=== PATIENT | male | born 1960 | race Caucasian/White ===

== ENCOUNTER 2018-05-13 09:28 | Emergency (ER) | payer SELFPAY ==
--- NOTE | 2018-05-13 10:10 | RAD ---
LEFT SHOULDER THREE VIEWS: INDICATIONS: Left shoulder pain. COMPARISON: None. FINDINGS: There is a hypertrophic, ununited fracture involving the distal clavicle. There is mild to moderate degenerative change of the left AC joint. There is apex angular deformity at the distal clavicle fra cture site. No acute fracture is evident. The visualized left lung is clear. 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 POS: [facility]
[2018-05-13] MEDS ORDERED: Naproxen 500 MG TAB ONE (10:26)
== END 2018-05-13 11:23 | disposition home or self-care (01) ==
LOC: ERS 09:28
DX: M25.512 Pain in left shoulder (principal); F17.210 Nicotine dependence, cigarettes, uncomplicated; Z79.899 Other long term (current) drug therapy; Z87.442 Personal history of urinary calculi; W01.0XXA Fall on same level from slipping, tripping and stumbling without subsequent striking against object, initial encounter; Y92.091 Bathroom in other non-institutional residence as the place of occurrence of the external cause

== ENCOUNTER 2018-06-02 11:28 | Emergency (ER) | payer SELFPAY | END 2018-06-02 12:34 | disposition home or self-care (01) | LOC: ERS 11:28 | DX: M54.2 Cervicalgia (principal); F17.210 Nicotine dependence, cigarettes, uncomplicated; Z87.442 Personal history of urinary calculi | CPT/HCPCS: 99283 ==

== ENCOUNTER 2018-06-17 07:25 | Emergency (ER) | payer SELFPAY ==
[2018-06-17 08:09] LABS: #Basophils 0.1 thou/uL (0.0-0.2); #Eosinphils 0.2 thou/uL (0.0-0.7); #Lymphocytes 1.9 thou/uL (1.20-3.40); #Monocytes 0.5 thou/uL (0.11-0.59); #Neutrophils 4.6 thou/uL (1.40-6.50); %Basophils 0.8 % (0.0-1.0); %Lymphocytes 25.9 % (21.0-51.0); %Neutrophils 63.3 % (42.0-75.0); Hemoglobin 15.5 g/dL (14.0-18.0); Mean Corpuscular HGB CONC 35.3 g/dL (32.0-36.0); Mean Corpuscular Hemoglobin 35.5 pg (27.0-31.0); Mean Platelet Volume 6.9 fL (7.4-10.4); Platelet Count 230 thou/uL (130-400); RBC Distribution Width 12.8 % (11.5-14.5); Red Blood Cell (RBC) Count 4.37 mill/uL (4.70-6.10); White Blood Cell (WBC) Count 7.3 thou/uL (4.8-10.8)
[2018-06-17] MEDS ORDERED: Ondansetron HCl/PF 4 MG/2 ML Vial ONE (08:21)
[2018-06-17] MEDS ORDERED: Ketorolac Tromethamine 30 MG/ML VIAL ONE (08:21)
[2018-06-17] MEDS ORDERED: Morphine 4 MG/ML VIAL ONE (08:21)
[2018-06-17 08:34] LABS: ALT (SGPT) 13 U/L (8-55); AST (SGOT) 17 U/L (5-34); Albumin 4.1 g/dL (3.5-5.0); Alkaline Phosphatase 48 U/L (40-150); Anion Gap 9 mmol/L (10-20); BUN (Urea Nitrogen) 16 mg/dL (8.4-25.7); Calc. Creatinine Clearance 0 mL/min (70-130); Calcium 9.1 mg/dL (7.8-10.44); Carbon Dioxide 26 mmol/L (22-29); Chloride 106 mmol/L (98-107); Estimated GFR-MDRD Greater than 90; Globulin 2.2 g/dL (2.4-3.5); Glucose 93 mg/dL (70-105); Potassium 4.3 mmol/L (3.5-5.1); Protein, Total 6.3 g/dL (6.0-8.3); Sodium 137 mmol/L (136-145)
--- NOTE | 2018-06-17 08:39 | CT ---
CT ABDOMEN AND PELVIS NONCONTRAST: HISTORY: Right flank pain. FINDINGS: Left renal collecting system and ureter are moderately distended to the level of the 0.5 cm calculus at the mid left ureter, L3-4 level. Left ureter beyond this point is decompressed. Right renal inna ecting system, ureter, and bladder are decompressed. Multiple calcifications are present within calyces of each kidney, measuring up to 0.4 cm. Lack of contrast limits evaluation for other abnormalities. Prominent calcification throughout the a rterial structures, accounting for additional calcifications at each renal hilum. Diverticula arise from the colon without adjacent inflammation. Degenerative changes lumbar spine. IMPRESSION: 1. Partial obstruction at a 5 mm mid left ureteral calculus. Additional nonobstructing bilateral re nal calculi. 2. Atherosclerosis. POS: [facility]
[2018-06-17 08:53] LABS: Bilirubin Negative (Negative); Blood, Urine Negative (Negative); Clarity CLEAR (Clear); Glucose, Urine (Dipstick) Negative (Negative); Leukocyte Negative (Negative); Nitrite Negative (Negative); Protein, Urine (Dipstick) Negative (Neg-Trace); Specific Gravity, Urine 1.019 (1.002-1.036)
== END 2018-06-17 10:30 | disposition home or self-care (01) ==
LOC: ERS 07:25
DX: N20.2 Calculus of kidney with calculus of ureter (principal); F17.210 Nicotine dependence, cigarettes, uncomplicated
CPT/HCPCS: 74176; 80053; 81003; 85025; 87086; 96374; 96375; J1885; J2270; J2405

== ENCOUNTER 2018-07-07 12:38 | Emergency (ER) | payer SELFPAY ==
[2018-07-07 13:04] LABS: #Basophils 0.1 thou/uL (0.0-0.2); #Eosinphils 0.1 thou/uL (0.0-0.7); #Lymphocytes 2.2 thou/uL (1.20-3.40); #Monocytes 0.7 thou/uL (0.11-0.59); #Neutrophils 5.4 thou/uL (1.40-6.50); %Basophils 0.9 % (0.0-1.0); %Eosinophils 1.5 % (0.0-10.0); %Monocytes 8.4 % (0.0-10.0); %Neutrophils 63.2 % (42.0-75.0); Hemoglobin 16.5 g/dL (14.0-18.0); Mean Corpuscular HGB CONC 36.1 g/dL (32.0-36.0); Mean Corpuscular Hemoglobin 36.1 pg (27.0-31.0); Mean Corpuscular Volume 99.8 fL (78.0-98.0); Mean Platelet Volume 6.5 fL (7.4-10.4); Platelet Count 234 thou/uL (130-400); RBC Distribution Width 12.8 % (11.5-14.5); Red Blood Cell (RBC) Count 4.57 mill/uL (4.70-6.10); White Blood Cell (WBC) Count 8.5 thou/uL (4.8-10.8)
[2018-07-07 13:18] LABS: ALT (SGPT) 14 U/L (8-55); AST (SGOT) 21 U/L (5-34); Albumin 4.2 g/dL (3.5-5.0); Alkaline Phosphatase 57 U/L (40-150); Anion Gap 13 mmol/L (10-20); BUN (Urea Nitrogen) 14 mg/dL (8.4-25.7); Bilirubin, Total 1.9 mg/dL (0.2-1.2); Calc. Creatinine Clearance 0 mL/min (70-130); Calcium 9.2 mg/dL (7.8-10.44); Carbon Dioxide 19 mmol/L (22-29); Chloride 105 mmol/L (98-107); Estimated GFR-MDRD 90; Glucose 107 mg/dL (70-105); Potassium 3.9 mmol/L (3.5-5.1); Protein, Total 7.2 g/dL (6.0-8.3); Sodium 133 mmol/L (136-145)
[2018-07-07] MEDS ORDERED: Ketorolac Tromethamine 30 MG/ML VIAL ONE (13:54)
[2018-07-07] MEDS ORDERED: Ondansetron HCl/PF 4 MG/2 ML Vial ONE (13:54)
[2018-07-07 14:10] LABS: Bilirubin Negative (Negative); Blood, Urine Moderate (Negative); Clarity CLEAR (Clear); Glucose, Urine (Dipstick) Negative (Negative); Leukocyte Negative (Negative); Nitrite Negative (Negative); Protein, Urine (Dipstick) Trace mg/dL (Neg-Trace); Urobilinogen 0.2 mg/dL (0.2-1.0)
[2018-07-07 14:12] LABS: Bacteria/HPF None Seen HPF (None Seen); Hyaline Casts/LPF 0-3 HYALINE CAST LPF (0-3 Hyaline); Pathc Cast-AUWi Flag 0.29 (0-2.49); RBC/HPF 21-50 HPF (0-3); Squamous Epithelial 0-3 HPF (0-3); WBC/HPF 0-3 HPF (0-3)
--- NOTE | 2018-07-07 14:36 | CT ---
CT OF THE ABDOMEN AND PELVIS WITHOUT IV CONTRAST: INDICATION: A 58-year-old male with flank pain. FINDINGS: The exam is compared to a prior dated 06/17/18. FINDINGS: Lung bases are clear. No focal hepatic lesion is evident. The pancreas, adrenal glands, and spleen appear unremarkable. T here is bilateral nephrolithiasis. The extent of the renal stone burden appears similar. There is a 4.7 mm stone within the proximal left ureter. No hydronephrosis is evident. There are scattered diverticula involving the colon. There is a normal appendix in the right lower q uadrant. The bladder is partially decompressed. The prostate is enlarged. There is diffuse osteopenia. There is scattered degenerative and osteoarthritic change. IMPRESSION: 1. A 4 mm stone within the mid left ureter is not appreciably changed in position from the compariso n examination. There is no hydronephrosis. 2. Bilateral nephrolithiasis. 3. Colonic diverticulosis. POS: [facility]
== END 2018-07-07 14:51 | disposition home or self-care (01) ==
LOC: ERS 12:38
DX: N20.2 Calculus of kidney with calculus of ureter (principal); K57.30 Diverticulosis of large intestine without perforation or abscess without bleeding; N40.0 Benign prostatic hyperplasia without lower urinary tract symptoms; F17.210 Nicotine dependence, cigarettes, uncomplicated; Z79.899 Other long term (current) drug therapy
CPT/HCPCS: 36415; 74176; 80053; 81003; 81015; 83605; 85025; 87040; 87086; 96361; 96374; 96375; J1885; J2405

== ENCOUNTER 2018-08-13 19:58 | Emergency (ER) | payer SELFPAY ==
[2018-08-13 20:28] LABS: #Basophils 0.1 thou/uL (0.0-0.2); #Eosinphils 0.1 thou/uL (0.0-0.7); #Lymphocytes 2.7 thou/uL (1.20-3.40); #Monocytes 0.7 thou/uL (0.11-0.59); #Neutrophils 4.7 thou/uL (1.40-6.50); %Basophils 1.3 % (0.0-1.0); %Eosinophils 1.4 % (0.0-10.0); %Lymphocytes 32.1 % (21.0-51.0); %Monocytes 8.9 % (0.0-10.0); %Neutrophils 56.3 % (42.0-75.0); Hemoglobin 16.6 g/dL (14.0-18.0); Mean Corpuscular HGB CONC 34.2 g/dL (32.0-36.0); Mean Corpuscular Hemoglobin 34.3 pg (27.0-31.0); Mean Platelet Volume 7.3 fL (7.4-10.4); Platelet Count 270 thou/uL (130-400); RBC Distribution Width 12.8 % (11.5-14.5); Red Blood Cell (RBC) Count 4.84 mill/uL (4.70-6.10); White Blood Cell (WBC) Count 8.3 thou/uL (4.8-10.8)
[2018-08-13] MEDS ORDERED: Ketorolac Tromethamine 30 MG/ML VIAL ONE (20:37)
[2018-08-13 20:46] LABS: ALT (SGPT) 13 U/L (8-55); AST (SGOT) 22 U/L (5-34); Albumin 4.4 g/dL (3.5-5.0); Alkaline Phosphatase 61 U/L (40-150); Anion Gap 15 mmol/L (10-20); BUN (Urea Nitrogen) 12 mg/dL (8.4-25.7); Bilirubin, Total 0.3 mg/dL (0.2-1.2); Calc. Creatinine Clearance 0 mL/min (70-130); Calcium 9.7 mg/dL (7.8-10.44); Carbon Dioxide 24 mmol/L (22-29); Chloride 103 mmol/L (98-107); Estimated GFR-MDRD 82; Globulin 2.8 g/dL (2.4-3.5); Glucose 105 mg/dL (70-105); Protein, Total 7.2 g/dL (6.0-8.3); Sodium 138 mmol/L (136-145)
[2018-08-13 20:49] LABS: Bilirubin Negative (Negative); Blood, Urine Large (Negative); Clarity CLEAR (Clear); Glucose, Urine (Dipstick) Negative (Negative); Leukocyte Negative (Negative); Nitrite Negative (Negative); Protein, Urine (Dipstick) Negative (Neg-Trace); Specific Gravity, Urine 1.005 (1.002-1.036); Urobilinogen 0.2 mg/dL (0.2-1.0)
[2018-08-13 20:51] LABS: Bacteria/HPF None Seen HPF (None Seen); Hyaline Casts/LPF 0-3 HYALINE CAST LPF (0-3 Hyaline); RBC/HPF 21-50 HPF (0-3); Squamous Epithelial None Seen HPF (0-3); WBC/HPF 0-3 HPF (0-3)
--- NOTE | 2018-08-13 22:12 | CT ---
CT ABDOMEN AND PELVIS WITHOUT CONTRAST: 08/13/18 Multiple axial tomograms obtained through the abdomen and pelvis without IV enhancement. INDICATIONS: Abdominal pain. Left flank pain. Known kidney stones. Comparison made to recent CT of 07/07/18. That exam revealed a 4 mm calculus in the mid left ureter producing mild obstructing change. FINDINGS: On today's exam, there is moderate to severe left hydronephrosis. The 4 mm calculus in the mid left u reter remains and is unchanged in position. There is now high grade obstructive change present on the left. No evidence of right ureteral calculus or obstruction. There are nonobstructing calculi in the upper collecting structures of both kidneys as previously noted. Liver, spleen, pancreas, adrenal glands and bowel loops are unremarkable and unchanged. IMPRESSION: 4 mm calculus in the mid left ureter is again seen. There is now high grade obstructive change on the left when compared to the exam of 07/07/18. POS: [facility]
[2018-08-13] MEDS ORDERED: Morphine 4 MG/ML VIAL ONE (22:37)
== END 2018-08-13 22:52 | disposition home or self-care (01) ==
LOC: ERS 19:58
DX: N13.2 Hydronephrosis with renal and ureteral calculous obstruction (principal); F41.9 Anxiety disorder, unspecified; F17.210 Nicotine dependence, cigarettes, uncomplicated; Z79.899 Other long term (current) drug therapy
CPT/HCPCS: 74176; 80053; 81003; 81015; 85025; 96361; 96374; 96375; J1885; J2270

== ENCOUNTER 2018-09-14 14:37 | Emergency (ER) | payer SELFPAY ==
[2018-09-14] MEDS ORDERED: Ondansetron PF 4 MG/2 ML Vial ONE (14:52)
[2018-09-14 15:22] LABS: #Basophils 0.1 thou/uL (0.0-0.2); #Lymphocytes 1.8 thou/uL (1.20-3.40); #Monocytes 0.9 thou/uL (0.11-0.59); #Neutrophils 10.1 thou/uL (1.40-6.50); %Basophils 0.6 % (0.0-1.0); %Eosinophils 0.3 % (0.0-10.0); %Lymphocytes 14.1 % (21.0-51.0); %Monocytes 6.9 % (0.0-10.0); %Neutrophils 78.1 % (42.0-75.0); Mean Corpuscular HGB CONC 33.4 g/dL (32.0-36.0); Mean Corpuscular Hemoglobin 33.4 pg (27.0-31.0); Mean Platelet Volume 7.2 fL (7.4-10.4); Platelet Count 248 thou/uL (130-400); Red Blood Cell (RBC) Count 5.39 mill/uL (4.70-6.10); White Blood Cell (WBC) Count 12.9 thou/uL (4.8-10.8)
[2018-09-14 15:45] LABS: ALT (SGPT) 18 U/L (8-55); AST (SGOT) 29 U/L (5-34); Albumin 4.5 g/dL (3.5-5.0); Alkaline Phosphatase 80 U/L (40-150); Anion Gap 17 mmol/L (10-20); BUN (Urea Nitrogen) 18 mg/dL (8.4-25.7); Bilirubin, Total 1.6 mg/dL (0.2-1.2); Calc. Creatinine Clearance 0 mL/min (70-130); Calcium 9.6 mg/dL (7.8-10.44); Carbon Dioxide 23 mmol/L (22-29); Chloride 101 mmol/L (98-107); Estimated GFR-MDRD Greater than 90; Globulin 3.1 g/dL (2.4-3.5); Glucose 134 mg/dL (70-105); Lipase 37 U/L (8-78); Potassium 3.6 mmol/L (3.5-5.1); Protein, Total 7.6 g/dL (6.0-8.3); Sodium 137 mmol/L (136-145)
[2018-09-14] MEDS ORDERED: Promethazine HCl 25 MG/ML VIAL ONE (17:19)
[2018-09-14 17:49] LABS: Bilirubin Small (Negative); Blood, Urine Large (Negative); Clarity CLOUDY (Clear); Glucose, Urine (Dipstick) Negative (Negative); Leukocyte Negative (Negative); Nitrite Negative (Negative); Protein, Urine (Dipstick) 30 mg/dL (Neg-Trace); Specific Gravity, Urine 1.023 (1.002-1.036)
[2018-09-14 17:51] LABS: Bacteria/HPF None Seen HPF (None Seen); Hyaline Casts/LPF 4-6 HYALINE CAST LPF (0-3 Hyaline); Pathc Cast-AUWi Flag 0.87 (0-2.49); RBC/HPF GREATER THAN 50-TNTC HPF (0-3); Squamous Epithelial 0-3 HPF (0-3); WBC/HPF 0-3 HPF (0-3)
== END 2018-09-14 18:45 | disposition home or self-care (01) ==
LOC: ERS 14:37
DX: E86.0 Dehydration (principal); F41.9 Anxiety disorder, unspecified; F43.10 Post-traumatic stress disorder, unspecified; F17.210 Nicotine dependence, cigarettes, uncomplicated; Z79.899 Other long term (current) drug therapy
CPT/HCPCS: 36415; 80053; 81003; 81015; 83690; 85025; 96360; 96361; 96365; 96372; 96375; J2405; J2550

== ENCOUNTER 2018-10-20 15:36 | Emergency (ER) | payer SELFPAY ==
[2018-10-20] MEDS ORDERED: Ondansetron PF 4 MG/2 ML Vial ONE (16:19)
[2018-10-20] MEDS ORDERED: Ketorolac Tromethamine 30 MG/ML VIAL ONE (16:19)
[2018-10-20 16:43] LABS: #Eosinphils 0.1 thou/uL (0.0-0.7); #Lymphocytes 1.9 thou/uL (1.20-3.40); #Monocytes 0.5 thou/uL (0.11-0.59); #Neutrophils 4.1 thou/uL (1.40-6.50); %Basophils 0.7 % (0.0-1.0); %Eosinophils 1.2 % (0.0-10.0); %Lymphocytes 28.6 % (21.0-51.0); %Neutrophils 61.4 % (42.0-75.0); Hemoglobin 17.6 g/dL (14.0-18.0); Mean Corpuscular HGB CONC 34.8 g/dL (32.0-36.0); Mean Corpuscular Hemoglobin 34.9 pg (27.0-31.0); Mean Platelet Volume 6.8 fL (7.4-10.4); Platelet Count 237 thou/uL (130-400); RBC Distribution Width 13.4 % (11.5-14.5); Red Blood Cell (RBC) Count 5.04 mill/uL (4.70-6.10); White Blood Cell (WBC) Count 6.6 thou/uL (4.8-10.8)
[2018-10-20 16:51] LABS: Bilirubin Negative (Negative); Blood, Urine Large (Negative); Clarity CLEAR (Clear); Glucose, Urine (Dipstick) Negative (Negative); Leukocyte Negative (Negative); Nitrite Negative (Negative); Protein, Urine (Dipstick) Negative (Neg-Trace); Specific Gravity, Urine 1.011 (1.002-1.036); pH, Urine 7.5 (5.0-9.0)
[2018-10-20 16:53] LABS: Bacteria/HPF None Seen HPF (None Seen); Hyaline Casts/LPF 0-3 HYALINE CAST LPF (0-3 Hyaline); RBC/HPF GREATER THAN 50-TNTC HPF (0-3); Squamous Epithelial None Seen HPF (0-3); WBC/HPF 0-3 HPF (0-3)
--- NOTE | 2018-10-20 17:03 | CT ---
CT ABDOMEN AND PELVIS WITH CONTRAST: HISTORY: Abdominal pain. RIGHT lower quadrant pain. COMPARISON: CT abdomen and pelvis stone protocol 08/13/2018. FINDINGS: The lung bases are clear. No pericardial effusion. There is normal proximal small bowel rotation. The appendix is visualized and is normal. There is moderate diverticular disease of the sigmoid colon without active current inflammation. The previously noted left ureteral calculus is no longer present. Nonobstructed 1 x 2 mm calculus is present in the superior pole right kidney. There is a 1 x 1 mm calculus superior pole right kidney. There is a 1 x 3 mm calculus interpolar right kidney. A 2 x 1 mm calculus superior pole left kidney. No obstructive hydronephrosis. Hypodensity inferior pole left kidney measures greater than fluid att enuation, not definitively a cyst. Extensive atherosclerotic plaque throughout the aortoiliac system without aneurysmal dilatation. There are calcifications of the prostate. No internal iliac adenopathy. No retroperitoneal adenopat hy. Celiac trunk and superior mesenteric artery are both patent. Inferior mesenteric artery is also mendieta nt. IMPRESSION: 1. Nonobstructive bilateral renal calculi. 2. Normal appendix. 3. Extensive diverticular disease sigmoid colon without active current inflammation. 4. Hypodensity inferior pole left kidney not definitively a cyst. A followup renal protocol CT or M [place] in 3-6 months recommended. This measures 9 mm. POS: [facility]
[2018-10-20 17:14] LABS: ALT (SGPT) 14 U/L (8-55); AST (SGOT) 31 U/L (5-34); Albumin 3.9 g/dL (3.5-5.0); Alkaline Phosphatase 59 U/L (40-150); Anion Gap 16 mmol/L (10-20); BUN (Urea Nitrogen) 13 mg/dL (8.4-25.7); Bilirubin, Total 0.7 mg/dL (0.2-1.2); Calc. Creatinine Clearance 0 mL/min (70-130); Calcium 8.7 mg/dL (7.8-10.44); Carbon Dioxide 25 mmol/L (22-29); Chloride 103 mmol/L (98-107); Estimated GFR-MDRD Greater than 90; Globulin 2.9 g/dL (2.4-3.5); Glucose 112 mg/dL (70-105); Lipase 52 U/L (8-78); Potassium 3.8 mmol/L (3.5-5.1); Protein, Total 6.8 g/dL (6.0-8.3); Sodium 140 mmol/L (136-145)
== END 2018-10-20 17:50 | disposition home or self-care (01) ==
LOC: ERS 15:36
DX: R10.31 Right lower quadrant pain (principal); R31.9 Hematuria, unspecified; F43.10 Post-traumatic stress disorder, unspecified; F41.9 Anxiety disorder, unspecified; F17.210 Nicotine dependence, cigarettes, uncomplicated; Z87.442 Personal history of urinary calculi
CPT/HCPCS: 74177; 80053; 81003; 81015; 83690; 85025; 87086; 96361; 96374; 96375; J1885; J2405

== ENCOUNTER 2018-10-21 15:46 | Emergency (ER) | payer SELFPAY ==
[2018-10-21 16:05] LABS: #Basophils 0.1 thou/uL (0.0-0.2); #Lymphocytes 1.6 thou/uL (1.20-3.40); #Monocytes 0.9 thou/uL (0.11-0.59); #Neutrophils 7.1 thou/uL (1.40-6.50); %Basophils 0.7 % (0.0-1.0); %Eosinophils 0.4 % (0.0-10.0); %Lymphocytes 16.5 % (21.0-51.0); %Monocytes 8.7 % (0.0-10.0); %Neutrophils 73.6 % (42.0-75.0); Hemoglobin 18.5 g/dL (14.0-18.0); Mean Corpuscular HGB CONC 34.2 g/dL (32.0-36.0); Mean Corpuscular Hemoglobin 34.2 pg (27.0-31.0); Mean Platelet Volume 6.9 fL (7.4-10.4); Platelet Count 238 thou/uL (130-400); RBC Distribution Width 13.4 % (11.5-14.5); Red Blood Cell (RBC) Count 5.41 mill/uL (4.70-6.10); White Blood Cell (WBC) Count 9.7 thou/uL (4.8-10.8)
[2018-10-21] MEDS ORDERED: Ondansetron PF 4 MG/2 ML Vial ONE (16:26)
[2018-10-21 16:38] LABS: ALT (SGPT) 14 U/L (8-55); AST (SGOT) 26 U/L (5-34); Albumin 4.5 g/dL (3.5-5.0); Alkaline Phosphatase 67 U/L (40-150); Anion Gap 15 mmol/L (10-20); BUN (Urea Nitrogen) 12 mg/dL (8.4-25.7); Bilirubin, Total 1.4 mg/dL (0.2-1.2); Calc. Creatinine Clearance 0 mL/min (70-130); Calcium 9.7 mg/dL (7.8-10.44); Carbon Dioxide 28 mmol/L (22-29); Chloride 98 mmol/L (98-107); Estimated GFR-MDRD 81; Globulin 3.1 g/dL (2.4-3.5); Glucose 140 mg/dL (70-105); Lipase 36 U/L (8-78); Potassium 3.7 mmol/L (3.5-5.1); Protein, Total 7.6 g/dL (6.0-8.3); Sodium 137 mmol/L (136-145)
== END 2018-10-21 16:00 | disposition home or self-care (01) ==
LOC: ERS 15:46
DX: R10.30 Lower abdominal pain, unspecified (principal); R11.2 Nausea with vomiting, unspecified; F43.10 Post-traumatic stress disorder, unspecified; F17.210 Nicotine dependence, cigarettes, uncomplicated; F41.9 Anxiety disorder, unspecified; Z87.442 Personal history of urinary calculi
CPT/HCPCS: 80053; 83690; 85025; 96361; 96372; 96374; J2405

== ENCOUNTER 2019-01-26 09:46 | Inpatient (IN) | payer SELFPAY ==
[2019-01-26] MEDS ORDERED: Lorazepam 2 MG/ML VIAL ONE (10:08)
[2019-01-26 10:32] LABS: Hemoglobin 15.1 g/dL (14.0-18.0); Mean Corpuscular HGB CONC 34.4 g/dL (32.0-36.0); Mean Corpuscular Hemoglobin 35.3 pg (27.0-31.0); Platelet Count 190 thou/uL (130-400); Red Blood Cell (RBC) Count 4.29 mill/uL (4.70-6.10); White Blood Cell (WBC) Count 5.8 thou/uL (4.8-10.8)
[2019-01-26 10:51] LABS: ALT (SGPT) 19 U/L (8-55); AST (SGOT) 28 U/L (5-34); Albumin 3.7 g/dL (3.5-5.0); Alkaline Phosphatase 129 U/L (40-150); Anion Gap 12 mmol/L (10-20); BUN (Urea Nitrogen) 7 mg/dL (8.4-25.7); Bilirubin, Total 0.9 mg/dL (0.2-1.2); Calc. Creatinine Clearance 0 mL/min (70-130); Calcium 8.2 mg/dL (7.8-10.44); Carbon Dioxide 29 mmol/L (22-29); Chloride 104 mmol/L (98-107); Estimated GFR-MDRD Greater than 90; Globulin 2.6 g/dL (2.4-3.5); Glucose 108 mg/dL (70-105); Lipase 19 U/L (8-78); Protein, Total 6.3 g/dL (6.0-8.3); Sodium 142 mmol/L (136-145)
[2019-01-26 10:58] LABS: Band 5 % (5-11); Lymphocytes 6 % (21-51); MDiff Complete? YES; Monocytes 8 % (0-10); Neutrophil 80 % (42-75); Platelet Morphology Comment PLT clumps seen-ADEQ; Reactive Lymphocytes 1 % (0-10)
[2019-01-26 11:34] LABS: Acetaminophen Less than 6.0 mcg/mL (10.0-30.0); Alcohol Less than 10 mg/dL (Less than 10); Salicylate Less than 8.0 mg/dL (15.0-30.0)
[2019-01-26] MEDS ORDERED: Ondansetron ODT 4 MG TAB PO PRN (11:51)
[2019-01-26] MEDS ORDERED: Labetalol HCl 100 MG/20 ML VIAL SLOW IVP PRN (11:52)
[2019-01-26] MEDS ORDERED: hydrALAZINE 20 MG/ML VIAL SLOW IVP PRN (11:52)
--- NOTE | 2019-01-26 12:30 | HP ---
CHIEF COMPLAINT/HISTORY OF PRESENT ILLNESS: [facility] admission for [facility]. The patient referred for alcohol withdrawal. The patient states he drinks two large wine coolers a day. He last had one 48 hours ago. He states he has an appointment in [place] with a [facility] starting of this week and is just currently Saturday. Since he stopped his alcohol, he has developed nausea, vomiting, tremulousness, some vague abdominal discomfort. He has had no hematemesis, no melena. He denies any hallucinations. He has had sweats. PAST MEDICAL HISTORY: Pertinent for renal stones requiring a basket removal off and on for the past 20 years. MEDICATIONS: Flomax 0.4 mg a day. ALLERGIES: NONE. PAST SURGICAL HISTORY: Basket retrieval of kidney stones, frequent. FAMILY HISTORY: Father of skin cancer that became invasive. Mother in her 80s of old age. SOCIAL HISTORY: He is . No surrogate decision maker. Smokes less than 1 pack a day. Smoked 2 packs a day in the past. Full code status. REVIEW OF SYSTEMS: GENERAL: He is occasionally lightheaded when he stands up, sees a few flashing lights. No fainting. No fever. EYES: No double vision, blurred vision. EARS, NOSE, AND THROAT: No ear pain or drainage. No nasal bleeding. No trouble swallowing. CARDIAC: No chest pain, orthopnea, or paroxysmal nocturnal dyspnea. RESPIRATION: No cough, wheezing, or asthma. GASTROINTESTINAL: See present illness. No diarrhea. No blood in his stools. GENITOURINARY: No hematuria or dysuria. MUSCULOSKELETAL: No pain or swelling in his arms and legs. NEUROLOGICAL: No history of stroke, seizures, or focal weakness. PSYCHIATRIC: History of alcoholism. SKIN: No bruising, bleeding, or rash. HEME/LYMPH: No tender or swollen lymph nodes in the axilla, inguinal, or cervical area. PHYSICAL EXAMINATION: GENERAL: He is alert, mildly tremulous gentleman. VITAL SIGNS: Blood pressure 163/94, pulse 79, respirations 15, room air saturation 96. HEENT: Examination of his head, eyes, ears, nose, and throat, pupils are equal, round, and reactive to light. Extraocular movements are intact. Sclerae are white. Tympanic membranes are clear. Nose clear. Oral mucous membranes are wet. Dental hygiene is good. NECK: Supple without jugular venous distention. No adenopathy or thyromegaly. CHEST: Clear to auscultation and percussion. HEART: Regular rate and rhythm. First and second heart sounds are clear. There are no appreciated murmurs or gallops. ABDOMEN: Soft. Bowel sounds are normal. There is no hepatosplenomegaly. No mass. No rebound. No bruits. EXTREMITIES: Reveal no cyanosis, clubbing, or edema. PULSES: Carotid, radial, femoral, and dorsalis pedis pulses intact. SKIN: Warm and dry without bruises or rash. HEME/LYMPH: No tender or swollen lymph nodes in the axilla, inguinal, or cervical area. NEUROLOGICAL: Mildly tremulous. No asterixis. Cranial nerves 2 through 12 are intact. Moves all extremities. LABORATORY DATA: Alcohol level less than 10. Chemistries; potassium 3.0, sodium 142, BUN low at 7, creatinine 0.85. Liver function tests normal. Hematology; white count 5.8, hemoglobin 15.1. He has macrocytic indices consistent with alcoholism. Platelet count 290,000. No EKG or chest x-ray presented, we will order. ADMITTING DIAGNOSES: 1. Alcohol withdrawal syndrome. 2. Alcoholism. 3. Tobacco abuse. 4. Hypertensive urgency on the current exam. 5. Renal stones. PLAN: IV fluids, banana bag daily. Lorazepam 1 mg IV q.4 p.r.n. for withdrawal syndrome. Chest x-ray and EKG have been ordered. P.r.n. medicines have been ordered for blood pressure control. We will monitor closely for transition to oral medicines. Hopefully, he can be discharged in time to make it to his rehab appointment on . Job ID: [id number]
--- NOTE | 2019-01-26 14:02 | RAD ---
RADIOGRAPH CHEST 2 VIEWS: HISTORY: 58-year-old male with nausea and vomiting. FINDINGS: There is no air space density, pulmonary edema, pleural effusion, pneumothorax, or cardiomegaly. IMPRESSION: No acute cardiopulmonary findings. jn [] POS: [facility]
[2019-01-26 14:47] VITALS: BMI 20.9
[2019-01-26] MEDS: Multivitamins, Adult 10 ML, Folic Acid 1 MG, Thiamine HCl 100 MG in Dextrose 5 %-0.45 %... IV SCH (15:10)
[2019-01-26] MEDS: Lorazepam 2 MG/ML VIAL SLOW IVP PRN ×2 (15:14→20:03)
[2019-01-26] MEDS: Sodium Chloride 0.9% 1,000 ML IV SCH ×2 (15:17→20:05)
[2019-01-26] MEDS: Famotidine/PF 20 mg/2ml Vial SLOW IVP SCH (20:01)
[2019-01-27] MEDS ORDERED: cloNIDine 0.1 MG TAB PO PRN (07:46)
[2019-01-27] MEDS: Enoxaparin Sodium 40 MG/0.4 ML SYRINGE SC SCH (08:01)
[2019-01-27] MEDS: Famotidine/PF 20 mg/2ml Vial SLOW IVP SCH (08:01)
[2019-01-27] MEDS: Sodium Chloride 0.9% 1,000 ML IV SCH ×3 (08:02→16:21)
[2019-01-27] MEDS: Lorazepam 2 MG/ML VIAL SLOW IVP PRN (08:06)
[2019-01-27 08:32] LABS: #Eosinphils 0.3 thou/uL (0.0-0.7); #Monocytes 0.5 thou/uL (0.11-0.59); #Neutrophils 5.1 thou/uL (1.40-6.50); %Basophils 0.1 % (0.0-1.0); %Eosinophils 3.7 % (0.0-10.0); %Lymphocytes 25.4 % (21.0-51.0); %Monocytes 6.7 % (0.0-10.0); %Neutrophils 64.1 % (42.0-75.0); Hemoglobin 14.8 g/dL (14.0-18.0); Mean Corpuscular HGB CONC 33.9 g/dL (32.0-36.0); Mean Corpuscular Hemoglobin 35.4 pg (27.0-31.0); Mean Platelet Volume 7.6 fL (7.4-10.4); Platelet Count 248 thou/uL (130-400); RBC Distribution Width 12.9 % (11.5-14.5); Red Blood Cell (RBC) Count 4.18 mill/uL (4.70-6.10)
[2019-01-27 08:43] LABS: ALT (SGPT) 18 U/L (8-55); AST (SGOT) 24 U/L (5-34); Albumin 3.5 g/dL (3.5-5.0); Alkaline Phosphatase 148 U/L (40-150); Anion Gap 12 mmol/L (10-20); BUN (Urea Nitrogen) 8 mg/dL (8.4-25.7); Bilirubin, Total 1.4 mg/dL (0.2-1.2); Calc. Creatinine Clearance 96 mL/min (70-130); Calcium 7.8 mg/dL (7.8-10.44); Carbon Dioxide 24 mmol/L (22-29); Chloride 106 mmol/L (98-107); Estimated GFR-MDRD Greater than 90; Globulin 2.4 g/dL (2.4-3.5); Glucose 95 mg/dL (70-105); Magnesium 1.5 mg/dL (1.6-2.6); Phosphorus 2.6 mg/dL (2.3-4.7); Potassium 3.2 mmol/L (3.5-5.1); Protein, Total 5.9 g/dL (6.0-8.3); Sodium 139 mmol/L (136-145)
[2019-01-27] MEDS ORDERED: Nicotine 14 MG PATCH TD PRN (09:24)
[2019-01-27] MEDS ORDERED: Magnesium Sulfate 4 GM in Sodium Chloride 0.9% 250 ML 250 ML IVPB SCH (09:30)
[2019-01-27] MEDS: Potassium Chloride 10 MEQ TAB PO SCH ×2 (10:20→16:19)
[2019-01-27] MEDS: Multivitamins, Adult 10 ML, Folic Acid 1 MG, Thiamine HCl 100 MG in Dextrose 5 %-0.45 %... IV SCH (14:03)
[2019-01-27] MEDS: cloNIDine 0.1 MG TAB PO SCH ×2 (14:14→20:16)
[2019-01-27] MEDS ORDERED: Thiamine 100 MG TAB PO SCH (15:00)
[2019-01-27] MEDS ORDERED: Folic Acid 1 MG TAB PO SCH (15:00)
[2019-01-27] MEDS ORDERED: Multivit, Therapeutic 1 TAB PO SCH (15:00)
[2019-01-27] MEDS: Propranolol 10 MG TAB PO SCH ×2 (16:19→20:16)
[2019-01-27] MEDS: Lorazepam 1 MG TAB PO PRN (16:22)
[2019-01-27] MEDS: Tamsulosin HCl 0.4 MG CAP PO SCH (20:16)
[2019-01-27] MEDS: Famotidine 20 MG TAB PO SCH (20:17)
--- NOTE | 2019-01-27 21:35 | PDOC.PN ---
- Subjective Encounter Start Date: 01/27/19 Encounter Start Time: 11:00 Patient seen and examined for Alcohol withdrawal. Gen tremors. No new complaints. No overnight events - Objective Resuscitation Status - Order Detail: 01/26/19 11:49 Resuscitation Status Routine Resuscitation Status: FULL: Full Resuscitation MAR Reviewed: Yes Vital Signs & Weight: Vital Signs (12 hours) Temp Pulse Resp BP BP Pulse Ox 01/27/19 20:16 153/92 H 01/27/19 20:00 97.9 F 74 18 153/92 H 153/92 H 96 01/27/19 16:00 97.9 F 77 18 165/78 H 165/78 H 97 01/27/19 14:14 160/89 H 01/27/19 12:00 98.0 F 80 20 160/89 H 160/89 H 97 Weight Weight 155 lb I&O: 01/26/19 01/27/19 01/28/19 06:59 06:59 06:59 Intake Total 2131 Balance 2131 Result Diagrams: 01/27/19 08:06 01/27/19 08:06 Additional Labs: Laboratory Tests 01/27/19 08:06 Potassium 3.2 L Phosphorus 2.6 Magnesium 1.5 L Phys Exam - Physical Examination Constitutional: NAD Respiratory: no wheezing, no rhonchi Cardiovascular: RRR, no rub Gastrointestinal: soft, non-tender, positive bowel sounds Musculoskeletal: no edema Neurological: moves all 4 limbs Dx/Plan - Plan DVT proph w/SCDs 1. Alcohol withdrawal 2. Electrolyte abnormalities (Hypokalemia/Hypomagnesemia) 3. Chronic alcoholism 4. Tobacco dep 5. HTN 6. BPH PLAN: Replace electrolytes Add Thiamine/Folic acid and MVM Cont Ativan PRN Counselled to quit drinking/smoking Add Clonidine/Inderal Resume Flomax Review of Systems - Review of Systems Respiratory: negative: Cough, Dry, Shortness of Breath, Hemoptysis, SOB with Excertion, Pleuritic Pain, Sputum, Wheezing Cardiovascular: negative: chest pain, palpitations, orthopnea, paroxysmal nocturnal dyspnea, edema, light headedness, other - Medications/Allergies Allergies/Adverse Reactions: Allergies Allergy/AdvReac Type Severity Reaction Status Date / Time No Known Drug Allergies Allergy Verified 01/26/19 14:56 Medications: Current Medications Acetaminophen (Tylenol) 650 mg PO Q4H PRN PRN Reason: Headache/Fever/Mild Pain (1-3) Clonidine (Catapres) 0.1 mg PO Q4H PRN PRN Reason: Systolic BP > 180 Clonidine (Catapres) 0.1 mg PO TID [facility] Last Admin: 01/27/19 20:16 Dose: 0.1 mg Enoxaparin Sodium (Lovenox) 40 mg SC 0900 [facility] Last Admin: 01/27/19 08:01 Dose: 40 mg Famotidine (Pepcid) 20 mg PO BID [facility] Last Admin: 01/27/19 20:17 Dose: 20 mg Folic Acid (Folvite) 1 mg PO DAILY [facility] Hydralazine HCl (Apresoline) 10 mg SLOW IVP Q4H PRN PRN Reason: SBP > 180 and HR < 70 Multivitamins 10 ml/ Folic Acid 1 mg/ Thiamine HCl 100 mg / Dextrose/Sodium Chloride 1,011.2 mls @ 250 mls/hr IV Q24HR [facility] Stop: 01/27/19 23:59 Last Admin: 01/27/19 14:03 Dose: Not Given Sodium Chloride (Normal Saline 0.9%) 1,000 mls @ 75 mls/hr IV .[id number] [facility] Last Admin: 01/27/19 16:21 Dose: 1,000 mls Labetalol HCl (Labetalol Hcl) 10 mg SLOW IVP Q4H PRN PRN Reason: Systolic BP > 180 Lorazepam (Ativan) 1 mg SLOW IVP Q4H PRN PRN Reason: Anxiety/Agitation Last Admin: 01/27/19 08:06 Dose: 1 mg Lorazepam (Ativan) 1 mg PO Q4H PRN PRN Reason: ASE >=9 Last Admin: 01/27/19 16:22 Dose: 1 mg Multivitamins (Theragran) 1 tab PO DAILY [facility] Ondansetron HCl (Zofran Odt) 4 mg PO Q6H PRN PRN Reason: Nausea/Vomiting Potassium Chloride (Klor-Con 10) 20 meq PO TID-[facility] Stop: 01/28/19 23:59 Last Admin: 01/27/19 16:19 Dose: 20 meq Propranolol HCl (Inderal) 10 mg PO TID [facility] Last Admin: 01/27/19 20:16 Dose: 10 mg Sodium Chloride (Flush - Normal Saline) 10 ml IVF Q12HR [facility] Last Admin: 01/27/19 20:17 Dose: Not Given Sodium Chloride (Flush - Normal Saline) 10 ml IVF PRN PRN PRN Reason: Saline Flush Tamsulosin HCl (Flomax) 0.4 mg PO HS [facility] Last Admin: 01/27/19 20:16 Dose: 0.4 mg Thiamine HCl (Thiamine) 100 mg PO DAILY [facility]
[2019-01-28] MEDS: Lorazepam 1 MG TAB PO PRN ×3 (00:37→17:55)
[2019-01-28] MEDS: Sodium Chloride 0.9% 1,000 ML IV SCH ×2 (00:38→09:58)
[2019-01-28 05:20] LABS: Anion Gap 12 mmol/L (10-20); BUN (Urea Nitrogen) 9 mg/dL (8.4-25.7); Calc. Creatinine Clearance 92 mL/min (70-130); Calcium 8.3 mg/dL (7.8-10.44); Carbon Dioxide 26 mmol/L (22-29); Chloride 107 mmol/L (98-107); Estimated GFR-MDRD Greater than 90; Glucose 94 mg/dL (70-105); Magnesium 2.3 mg/dL (1.6-2.6); Phosphorus 2.7 mg/dL (2.3-4.7); Potassium 3.7 mmol/L (3.5-5.1); Sodium 141 mmol/L (136-145)
[2019-01-28] MEDS: Potassium Chloride 10 MEQ TAB PO SCH ×3 (09:55→17:53)
[2019-01-28] MEDS: Famotidine 20 MG TAB PO SCH ×2 (09:56→20:07)
[2019-01-28] MEDS: Thiamine 100 MG TAB PO SCH (09:56)
[2019-01-28] MEDS: Multivit, Therapeutic 1 TAB PO SCH (09:56)
[2019-01-28] MEDS: cloNIDine 0.1 MG TAB PO SCH ×3 (09:56→20:06)
[2019-01-28] MEDS: Propranolol 10 MG TAB PO SCH ×3 (09:57→20:07)
[2019-01-28] MEDS: Enoxaparin Sodium 40 MG/0.4 ML SYRINGE SC SCH (09:57)
[2019-01-28] MEDS: Folic Acid 1 MG TAB PO SCH (09:57)
[2019-01-28] MEDS: Tamsulosin HCl 0.4 MG CAP PO SCH (20:07)
--- NOTE | 2019-01-28 21:37 | PDOC.PN ---
- Subjective Encounter Start Date: 01/28/19 Encounter Start Time: 11:30 Patient seen and examined for alcohol withdrawal. Gen tremors somewhat better. No N/V. No new complaints. No overnight events - Objective Resuscitation Status - Order Detail: 01/26/19 11:49 Resuscitation Status Routine Resuscitation Status: FULL: Full Resuscitation MAR Reviewed: Yes Vital Signs & Weight: Vital Signs (12 hours) Temp Pulse Resp BP BP BP Pulse Ox 01/28/19 20:00 97.9 F 61 20 152/87 H 152/87 H 97 01/28/19 17:53 97.9 F 65 18 171/91 H 97 01/28/19 14:41 133/66 01/28/19 12:00 98.2 F 58 L 18 164/91 H 96 01/28/19 11:04 98 01/28/19 10:00 169/90 H 01/28/19 09:56 169/90 H Weight Weight 155 lb I&O: 01/27/19 01/28/19 01/29/19 06:59 06:59 06:59 Intake Total 2131 2100 Balance 2131 2100 Result Diagrams: 01/27/19 08:06 01/28/19 04:25 Phys Exam - Physical Examination Constitutional: NAD (gen tremors +) Respiratory: no wheezing, no rhonchi Cardiovascular: RRR, no rub Gastrointestinal: soft, non-tender, positive bowel sounds Musculoskeletal: no edema Dx/Plan - Plan DVT proph w/SCDs 1. Alcohol withdrawal 2. Electrolyte abnormalities (Hypokalemia/Hypomagnesemia) 3. Chronic alcoholism 4. Tobacco dep 5. HTN 6. BPH PLAN: ContThiamine/Folic acid/MVM Cont Ativan PRN Cont Clonidine/Inderal Cont Flomax Review of Systems - Review of Systems Respiratory: negative: Cough, Dry, Shortness of Breath, Hemoptysis, SOB with Excertion, Pleuritic Pain, Sputum, Wheezing Cardiovascular: negative: chest pain, palpitations, orthopnea, paroxysmal nocturnal dyspnea, edema, light headedness, other Gastrointestinal: negative: Nausea, Vomiting, Abdominal Pain, Diarrhea, Constipation, Melena, Hematochezia, Other - Medications/Allergies Allergies/Adverse Reactions: Allergies Allergy/AdvReac Type Severity Reaction Status Date / Time No Known Drug Allergies Allergy Verified 01/26/19 14:56 Medications: Current Medications Acetaminophen (Tylenol) 650 mg PO Q4H PRN PRN Reason: Headache/Fever/Mild Pain (1-3) Clonidine (Catapres) 0.1 mg PO Q4H PRN PRN Reason: Systolic BP > 180 Clonidine (Catapres) 0.1 mg PO TID [facility] Last Admin: 01/28/19 20:06 Dose: 0.1 mg Famotidine (Pepcid) 20 mg PO BID [facility] Last Admin: 01/28/19 20:07 Dose: 20 mg Folic Acid (Folvite) 1 mg PO DAILY [facility] Last Admin: 01/28/19 09:57 Dose: 1 mg Hydralazine HCl (Apresoline) 10 mg SLOW IVP Q4H PRN PRN Reason: SBP > 180 and HR < 70 Sodium Chloride (Normal Saline 0.9%) 1,000 mls @ 75 mls/hr IV .[id number] [facility] Last Admin: 01/28/19 09:58 Dose: 1,000 mls Labetalol HCl (Labetalol Hcl) 10 mg SLOW IVP Q4H PRN PRN Reason: Systolic BP > 180 Lorazepam (Ativan) 1 mg PO Q4H PRN PRN Reason: ASE >=6 Last Admin: 01/28/19 17:55 Dose: 1 mg Multivitamins (Theragran) 1 tab PO DAILY [facility] Last Admin: 01/28/19 09:56 Dose: 1 tab Ondansetron HCl (Zofran Odt) 4 mg PO Q6H PRN PRN Reason: Nausea/Vomiting Potassium Chloride (Klor-Con 10) 20 meq PO TID-[facility] Stop: 01/28/19 23:59 Last Admin: 01/28/19 17:53 Dose: 20 meq Propranolol HCl (Inderal) 10 mg PO TID [facility] Last Admin: 01/28/19 20:07 Dose: 10 mg Sodium Chloride (Flush - Normal Saline) 10 ml IVF Q12HR [facility] Last Admin: 01/28/19 20:07 Dose: Not Given Sodium Chloride (Flush - Normal Saline) 10 ml IVF PRN PRN PRN Reason: Saline Flush Tamsulosin HCl (Flomax) 0.4 mg PO HS [facility] Last Admin: 01/28/19 20:07 Dose: 0.4 mg Thiamine HCl (Thiamine) 100 mg PO DAILY [facility] Last Admin: 01/28/19 09:56 Dose: 100 mg
[2019-01-29] MEDS: Sodium Chloride 0.9% 1,000 ML IV SCH ×2 (00:41→18:33)
[2019-01-29] MEDS: Multivit, Therapeutic 1 TAB PO SCH (08:44)
[2019-01-29] MEDS: Famotidine 20 MG TAB PO SCH ×2 (08:44→20:07)
[2019-01-29] MEDS: cloNIDine 0.1 MG TAB PO SCH ×3 (08:44→20:07)
[2019-01-29] MEDS: Folic Acid 1 MG TAB PO SCH (08:44)
[2019-01-29] MEDS: Thiamine 100 MG TAB PO SCH (08:44)
[2019-01-29] MEDS: Propranolol 10 MG TAB PO SCH ×3 (08:45→20:08)
[2019-01-29] MEDS: Lorazepam 1 MG TAB PO PRN ×2 (08:52→21:28)
[2019-01-29] MEDS: Tamsulosin HCl 0.4 MG CAP PO SCH (20:07)
--- NOTE | 2019-01-29 22:24 | PDOC.PN ---
- Subjective Encounter Start Date: 01/29/19 Encounter Start Time: 11:00 Patient seen and examined for Alcohol withdrawal. Tremors improving. No new complaints. No overnight events - Objective Resuscitation Status - Order Detail: 01/26/19 11:49 Resuscitation Status Routine Resuscitation Status: FULL: Full Resuscitation MAR Reviewed: Yes Vital Signs & Weight: Vital Signs (12 hours) Temp Pulse Resp BP BP BP Pulse Ox 01/29/19 20:07 164/80 H 01/29/19 20:02 98.8 F 54 L 18 164/80 H 97 01/29/19 20:00 164/80 H 01/29/19 18:08 98.5 F 60 18 170/92 H 96 01/29/19 15:02 143/73 H 01/29/19 12:41 97.5 F L 61 18 170/95 H 98 Weight Weight 155 lb I&O: 01/28/19 01/29/19 01/30/19 06:59 06:59 06:59 Intake Total 2131 2100 1700 Balance 2131 2100 1700 Result Diagrams: 01/27/19 08:06 01/28/19 04:25 Phys Exam - Physical Examination Constitutional: NAD Gen tremors Respiratory: no wheezing, no rhonchi Cardiovascular: RRR, no rub Gastrointestinal: soft, non-tender, positive bowel sounds Musculoskeletal: no edema Neurological: moves all 4 limbs Dx/Plan - Plan DVT proph w/SCDs 1. Alcohol withdrawal 2. Electrolyte abnormalities (Hypokalemia/Hypomagnesemia) 3. Chronic alcoholism 4. Tobacco dep 5. HTN 6. BPH PLAN: Cont Thiamine/Folic acid/MVM Cont Clonidine/Inderal with PRN Ativan DC in 24-48 hr if stable Review of Systems - Review of Systems Respiratory: negative: Cough, Dry, Shortness of Breath, Hemoptysis, SOB with Excertion, Pleuritic Pain, Sputum, Wheezing Cardiovascular: negative: chest pain, palpitations, orthopnea, paroxysmal nocturnal dyspnea, edema, light headedness, other Gastrointestinal: negative: Nausea, Vomiting, Abdominal Pain, Diarrhea, Constipation, Melena, Hematochezia, Other - Medications/Allergies Allergies/Adverse Reactions: Allergies Allergy/AdvReac Type Severity Reaction Status Date / Time No Known Drug Allergies Allergy Verified 01/26/19 14:56 Medications: Current Medications Acetaminophen (Tylenol) 650 mg PO Q4H PRN PRN Reason: Headache/Fever/Mild Pain (1-3) Clonidine (Catapres) 0.1 mg PO Q4H PRN PRN Reason: Systolic BP > 180 Clonidine (Catapres) 0.1 mg PO TID [facility] Last Admin: 01/29/19 20:07 Dose: 0.1 mg Famotidine (Pepcid) 20 mg PO BID [facility] Last Admin: 01/29/19 20:07 Dose: 20 mg Folic Acid (Folvite) 1 mg PO DAILY [facility] Last Admin: 01/29/19 08:44 Dose: 1 mg Hydralazine HCl (Apresoline) 10 mg SLOW IVP Q4H PRN PRN Reason: SBP > 180 and HR < 70 Sodium Chloride (Normal Saline 0.9%) 1,000 mls @ 75 mls/hr IV .[id number] [facility] Last Admin: 01/29/19 18:33 Dose: 1,000 mls Labetalol HCl (Labetalol Hcl) 10 mg SLOW IVP Q4H PRN PRN Reason: Systolic BP > 180 Lorazepam (Ativan) 1 mg PO Q4H PRN PRN Reason: ASE >=6 Last Admin: 01/29/19 21:28 Dose: 1 mg Multivitamins (Theragran) 1 tab PO DAILY [facility] Last Admin: 01/29/19 08:44 Dose: 1 tab Ondansetron HCl (Zofran Odt) 4 mg PO Q6H PRN PRN Reason: Nausea/Vomiting Propranolol HCl (Inderal) 10 mg PO TID [facility] Last Admin: 01/29/19 20:08 Dose: 10 mg Sodium Chloride (Flush - Normal Saline) 10 ml IVF Q12HR [facility] Last Admin: 01/29/19 20:08 Dose: Not Given Sodium Chloride (Flush - Normal Saline) 10 ml IVF PRN PRN PRN Reason: Saline Flush Tamsulosin HCl (Flomax) 0.4 mg PO HS [facility] Last Admin: 01/29/19 20:07 Dose: 0.4 mg Thiamine HCl (Thiamine) 100 mg PO DAILY [facility] Last Admin: 01/29/19 08:44 Dose: 100 mg
[2019-01-30] MEDS: Sodium Chloride 0.9% 1,000 ML IV SCH (05:38)
[2019-01-30] MEDS: Acetaminophen 325 MG TAB PO PRN (05:38)
[2019-01-30] MEDS: Multivit, Therapeutic 1 TAB PO SCH (08:11)
[2019-01-30] MEDS: cloNIDine 0.1 MG TAB PO SCH ×3 (08:11→20:11)
[2019-01-30] MEDS: Famotidine 20 MG TAB PO SCH ×2 (08:11→20:11)
[2019-01-30] MEDS: Folic Acid 1 MG TAB PO SCH (08:11)
[2019-01-30] MEDS: Thiamine 100 MG TAB PO SCH (08:11)
[2019-01-30] MEDS: Lorazepam 1 MG TAB PO PRN ×3 (08:15→20:14)
[2019-01-30] MEDS: Propranolol 10 MG TAB PO SCH ×3 (12:16→20:10)
[2019-01-30] MEDS: Tamsulosin HCl 0.4 MG CAP PO SCH (20:11)
--- NOTE | 2019-01-30 22:52 | PDOC.PN ---
- Subjective Encounter Start Date: 01/30/19 Encounter Start Time: 11:30 Patient seen and examined for Alcohol withdrawal. Gen tremors improving. Less anxious. No new complaints. No overnight events - Objective Resuscitation Status - Order Detail: 01/26/19 11:49 Resuscitation Status Routine Resuscitation Status: FULL: Full Resuscitation MAR Reviewed: Yes Vital Signs & Weight: Vital Signs (12 hours) Temp Pulse Resp BP BP BP Pulse Ox 01/30/19 20:15 98.6 F 56 L 18 165/91 H 97 01/30/19 20:11 165/91 H 01/30/19 20:10 165/91 H 01/30/19 16:00 98.0 F 59 L 20 161/78 H 161/78 H 97 01/30/19 15:31 170/91 H 01/30/19 12:00 152/79 H 01/30/19 11:11 98.1 F 53 L 18 152/79 H 96 Weight Weight 155 lb I&O: 01/29/19 01/30/19 01/31/19 06:59 06:59 06:59 Intake Total 2100 3350 1575 Balance 2100 3350 1575 Result Diagrams: 01/27/19 08:06 01/28/19 04:25 Phys Exam - Physical Examination Constitutional: NAD Respiratory: no wheezing, no rhonchi Cardiovascular: RRR, no rub Gastrointestinal: soft, non-tender, positive bowel sounds Musculoskeletal: no edema Dx/Plan - Plan DVT proph w/SCDs 1. Alcohol withdrawal 2. Electrolyte abnormalities (Hypokalemia/Hypomagnesemia) 3. Chronic alcoholism 4. Tobacco dep 5. HTN 6. BPH PLAN: ASE score around 5-6 Cont Ativan PRN for score 6 or more Cont Thiamine/Folic acid/MVM Cont Clonidine/Inderal DC in AM if stable Review of Systems - Review of Systems Respiratory: negative: Cough, Dry, Shortness of Breath, Hemoptysis, SOB with Excertion, Pleuritic Pain, Sputum, Wheezing Cardiovascular: negative: chest pain, palpitations, orthopnea, paroxysmal nocturnal dyspnea, edema, light headedness, other - Medications/Allergies Allergies/Adverse Reactions: Allergies Allergy/AdvReac Type Severity Reaction Status Date / Time No Known Drug Allergies Allergy Verified 01/26/19 14:56 Medications: Current Medications Acetaminophen (Tylenol) 650 mg PO Q4H PRN PRN Reason: Headache/Fever/Mild Pain (1-3) Last Admin: 01/30/19 05:38 Dose: 650 mg Clonidine (Catapres) 0.1 mg PO Q4H PRN PRN Reason: Systolic BP > 180 Last Admin: 01/30/19 05:37 Dose: 0.1 mg Clonidine (Catapres) 0.1 mg PO TID [facility] Last Admin: 01/30/19 20:11 Dose: 0.1 mg Famotidine (Pepcid) 20 mg PO BID [facility] Last Admin: 01/30/19 20:11 Dose: 20 mg Folic Acid (Folvite) 1 mg PO DAILY [facility] Last Admin: 01/30/19 08:11 Dose: 1 mg Hydralazine HCl (Apresoline) 10 mg SLOW IVP Q4H PRN PRN Reason: SBP > 180 and HR < 70 Labetalol HCl (Labetalol Hcl) 10 mg SLOW IVP Q4H PRN PRN Reason: Systolic BP > 180 Lorazepam (Ativan) 1 mg PO Q4H PRN PRN Reason: ASE >=6 Last Admin: 01/30/19 20:14 Dose: 1 mg Multivitamins (Theragran) 1 tab PO DAILY [facility] Last Admin: 01/30/19 08:11 Dose: 1 tab Ondansetron HCl (Zofran Odt) 4 mg PO Q6H PRN PRN Reason: Nausea/Vomiting Propranolol HCl (Inderal) 10 mg PO TID [facility] Last Admin: 01/30/19 20:10 Dose: 10 mg Sodium Chloride (Flush - Normal Saline) 10 ml IVF Q12HR [facility] Last Admin: 01/30/19 20:12 Dose: 10 ml Sodium Chloride (Flush - Normal Saline) 10 ml IVF PRN PRN PRN Reason: Saline Flush Tamsulosin HCl (Flomax) 0.4 mg PO HS [facility] Last Admin: 01/30/19 20:11 Dose: 0.4 mg Thiamine HCl (Thiamine) 100 mg PO DAILY [facility] Last Admin: 01/30/19 08:11 Dose: 100 mg
[2019-01-31] MEDS: Multivit, Therapeutic 1 TAB PO SCH (08:46)
[2019-01-31] MEDS: Thiamine 100 MG TAB PO SCH (08:46)
[2019-01-31] MEDS: cloNIDine 0.1 MG TAB PO SCH (08:46)
[2019-01-31] MEDS: Famotidine 20 MG TAB PO SCH (08:46)
[2019-01-31] MEDS: Acetaminophen 325 MG TAB PO PRN (08:47)
[2019-01-31] MEDS: Folic Acid 1 MG TAB PO SCH (08:47)
[2019-01-31] MEDS: Propranolol 10 MG TAB PO SCH (08:47)
[2019-01-31] MEDS: Lorazepam 1 MG TAB PO PRN (08:51)
[2019-01-31 12:00] VITALS: BP 148/86; TEMP 97.9
--- NOTE | 2019-01-31 21:08 | DIS ---
DATE OF ADMISSION: 01/26/2019 DATE OF DISCHARGE: 01/31/2019 DISCHARGE DISPOSITION: Home. FOLLOWUP: Follow up with primary care physician in 1 week. The patient does not have a PCP at this time. He was advised to follow up with [facility]. ALLERGIES: NO KNOWN DRUG ALLERGIES. DISCHARGE MEDICATIONS: 1. Thiamine 100 mg daily. 2. Folic acid 1 mg daily. 3. Clonidine as needed. 4. Flomax 0.4 mg daily. 5. Multivitamin 1 tablet daily. The patient was seen and examined on the day of discharge. Denies any new complaints. No chest pain, shortness of breath palpitations. BRIEF HOSPITAL COURSE: The patient is a 58-year-old male with daily alcohol use, presented to the hospital with nausea, vomiting, and generalized tremor. He quit drinking approximately 2 days ago. Please refer to the history and physical for further details. The patient was admitted to the hospital with a diagnosis of alcohol withdrawal. He was monitored on the medical floor with frequent alcohol withdrawal protocol scoring. He was started on thiamine, folic acid, multivitamins. He also had electrolyte abnormalities including hypokalemia and hypomagnesemia, which were replaced. Generalized tremors and alcohol withdrawal symptoms have significantly improved. He will follow up with alcohol rehab in 1 to 2 days. Plan was discussed with the patient. He stated understanding. FINAL DIAGNOSES: 1. Alcohol withdrawal. 2. Hypokalemia. 3. Hypomagnesemia. 4. Chronic alcoholism. 5. Tobacco dependence. The patient was counseled. 6. Hypertension. 7. Benign prostatic hypertrophy. 8. Abnormal liver function tests secondary to alcoholism. Repeat liver function tests after 1 to 2 weeks recommended. 9. Primary care physician advised to follow. 10. Macrocytosis. TIME SPENT: Total time coordinating the discharge of this patient was 32 minutes. Again, he was extensively counseled to quit smoking and drinking. Job ID: [id number]
--- NOTE | 2019-02-02 16:55 | EKG ---
Test Reason : Blood Pressure : / mmHG Vent. Rate : 063 BPM Atrial Rate : 063 BPM P-R Int : 120 ms QRS Dur : 090 ms QT Int : 462 ms P-R-T Axes : 055 030 050 degrees QTc Int : 472 ms Normal sinus rhythm Normal ECG No previous ECGs available Confirmed by REMINGTON CADENA ([id number]) on 02/02/2019 4:54:51 PM Referred By: YULI Confirmed By:REMINGTON CADENA
== END 2019-01-31 14:51 | disposition home or self-care (01) | DRG 897 ==
LOC: ERS 09:46 → ERHOLD 11:20 → T4-A 14:34
PROVIDERS: ADMIT Internal Medicine; ATTEND Internal Medicine
DX: F10.239 Alcohol dependence with withdrawal, unspecified (principal); F17.210 Nicotine dependence, cigarettes, uncomplicated; I16.0 Hypertensive urgency; E87.6 Hypokalemia; E83.42 Hypomagnesemia; N40.0 Benign prostatic hyperplasia without lower urinary tract symptoms; R94.5 Abnormal results of liver function studies; D75.89 Other specified diseases of blood and blood-forming organs; F43.10 Post-traumatic stress disorder, unspecified; Y90.0 Blood alcohol level of less than 20 mg/100 ml; Z79.899 Other long term (current) drug therapy
CPT/HCPCS: 36415; 71046; 80048; 80053; 80307; 83690; 83735; 84100; 85025; 93005; 93010; 96374; J1650; J2060; J3411; J3475; J7042; J7050; S0028